=== PATIENT | female | born 1970 | race American Indian/Alaskan Native ===

== ENCOUNTER → 2018-04-06 17:34 | Outpatient (CLI) | payer OTHER, SELFPAY ==
--- NOTE | 2018-04-06 17:42 | DI.RAD.S_ITS ---
PROCEDURE: XR SHOULDER LT MIN 2V INDICATIONS: INJURY L ARM DISTAL FOREARM L SHOULDER TECHNIQUE: 3 views of the shoulder were acquired. COMPARISON: [facility], , SHOULDER MINIMUM 2 VIEW LEFT, 10/18/2017, 12:10. FINDINGS: Bones: No fractures or dislocations. No suspicious bony lesions. Visualized ribs appear intact. Glenohumeral and acromioclavicular joint degeneration is unchanged Soft tissues: No suspicious soft tissue calcifications. IMPRESSION: No fracture Dictated by: Estrada Carrasco M.D. on 04/06/2018 at 19:35 Approved by: Estrada Carrasco M.D. on 04/06/2018 at 19:36
--- NOTE | 2018-04-06 17:42 | DI.RAD.S_ITS ---
PROCEDURE: XR WRIST LT MIN 3V INDICATIONS: STATUS POST FALL ONTO OUT STRETCHED HAND. WRIST PAIN TECHNIQUE: 4 views of the wrist were acquired. COMPARISON: None. FINDINGS: Bones: No fractures or dislocations. No suspicious bony lesions. Scaphoid view: No fracture Soft tissues: No suspicious soft tissue calcifications. IMPRESSION: No fracture Dictated by: Estrada Carrasco M.D. on 04/06/2018 at 19:36 Approved by: Estrada Carrasco M.D. on 04/06/2018 at 19:38
== END ==
PROVIDERS: Family Provider Physician Assistant; PCP Physician Assistant; Visit Provider Physician Assistant
DX: S59.912A Unspecified injury of left forearm, initial encounter (principal); S69.92XA Unspecified injury of left wrist, hand and finger(s), initial encounter
CPT/HCPCS: 73030; 73110

== ENCOUNTER → 2018-10-25 09:13 | Outpatient (CLI) | payer OTHER, SELFPAY ==
--- NOTE | 2018-10-25 | DI.RAD.S_ITS ---
PROCEDURE: XR CHEST 2V INDICATIONS: PERSISTANT COUGH/SOB TECHNIQUE: 2 views of the chest were acquired. COMPARISON: [facility], , CHEST 2 VIEW, 11/01/2012, 10:23. FINDINGS: Surgical changes and devices: None. Lungs and pleura: No pleural effusions or pneumothorax. Lungs are clear. Mediastinum: Mediastinal contours are normal. Heart size is normal. Bones and chest wall: No suspicious bony abnormalities. Soft tissues appear unremarkable. IMPRESSION: Negative chest films. Dictated by: Andriy Burrell M.D. on 10/25/2018 at 9:58 Approved by: Andriy Burrell M.D. on 10/25/2018 at 9:58
== END ==
PROVIDERS: Family Provider Physician Assistant; PCP Physician Assistant; Visit Provider Family Medicine
DX: R05 Cough (principal); R06.02 Shortness of breath
CPT/HCPCS: 71046

== ENCOUNTER → 2018-11-01 08:34 | Outpatient (CLI) | payer OTHER, SELFPAY ==
--- NOTE | 2018-11-09 15:18 | PM.PFT.1 ---
Pulmonary Function Test Referral & Results Date Patient Seen: 11/01/18 Requesting provider: Antionette Major Indication: Shortness of breath, cough Results: The spirometry demonstrates an FVC of 4.04 L which is 114% of predicted. The FEV1 was measured at 3.21 L which is 115% of predicted. The FEV1/FVC ratio was 79 which is 99% of predicted. Following the administration of bronchodilator there was no appreciable change to above normal numbers. Lung volumes show an SVC of 3.90 L which is 120% of predicted. The diffusing capacity was measured at 25.98 which is 107% of predicted. The maximum voluntary ventilation was normal Interpretation: This study demonstrates normal pulmonary function
== END ==
PROVIDERS: PCP Physician Assistant; Visit Provider Family Medicine
DX: R06.02 Shortness of breath (principal); R05 Cough
CPT/HCPCS: 94060; 94726; 94729

== ENCOUNTER → 2020-11-18 16:43 | Outpatient (CLI) | payer OTHER, SELFPAY ==
--- NOTE | 2020-11-18 16:47 | DI.RAD.S_ITS ---
PROCEDURE: XR CHEST 2V INDICATIONS: Cough TECHNIQUE: 2 views of the chest were acquired. COMPARISON: [facility], , XR CHEST 2V, 10/25/2018, 9:28. [facility], , CHEST 2 VIEW, 11/01/2012, 10:23. FINDINGS: Surgical changes and devices: None. Lungs and pleura: Lungs are clear. No pleural effusions or pneumothorax. Mediastinum: Mediastinal contours are normal. Heart size is normal. Bones and chest wall: No suspicious bony abnormalities. Soft tissues appear unremarkable. IMPRESSION: Normal for age, source of current cough symptoms is not seen. Dictated by: Alex Powell M.D. on 11/18/2020 at 17:35 Approved by: Alex Powell M.D. on 11/18/2020 at 17:35
== END ==
PROVIDERS: PCP Physician Assistant; Referring Provider Family Medicine; Visit Provider Family Medicine
DX: J40 Bronchitis, not specified as acute or chronic (principal)
CPT/HCPCS: 71046

== ENCOUNTER → 2020-12-29 08:12 | Outpatient (CLI) | payer OTHER, SELFPAY ==
--- NOTE | 2020-12-29 08:23 | DI.CT.S_ITS ---
PROCEDURE: CT SINUS SCREEN WO CON INDICATIONS: Chronic sinusitis, unspecified TECHNIQUE: Noncontrast 3.0 mm axial images acquired from the frontal sinuses to the mid-sella, with coronal and sagittal reformats. For radiation dose reduction, the following was used: automated exposure control, adjustment of mA and/or kV according to patient size. COMPARISON: None. FINDINGS: Image quality: Excellent. Maxillary Sinuses: No bony remodeling or destruction. Sinuses are clear. Ethmoid Air Cells: No bony remodeling or destruction. Sinuses are clear. Sphenoid Sinuses: No bony remodeling or destruction. Sinuses are clear. Frontal Sinuses: No bony remodeling or destruction. Sinuses are clear. Ostiomeatal Complexes: Ostiomeatal complexes are patent, yet they are constitutionally narrowed, with bilateral Kp cells. Miscellaneous: Visualized intra-orbital contents are normal. No keenan bullosa or paradoxical turbinate curvature. There is minimal rightward nasal septal deviation. IMPRESSION: No active paranasal sinus disease is seen. Constitutionally narrowed ostiomeatal complexes, with bilateral Kp cells. Dictated by: Abad Wong M.D. on 12/29/2020 at 8:23 Approved by: Abad Wong M.D. on 12/29/2020 at 8:24
== END ==
PROVIDERS: PCP Physician Assistant; Referring Provider Family Medicine; Visit Provider Family Medicine
DX: J32.9 Chronic sinusitis, unspecified (principal)
CPT/HCPCS: 70486

== ENCOUNTER → 2022-02-02 13:41 | Outpatient (CLI) | payer OTHER, SELFPAY ==
[2022-02-03 14:33] LABS: Interpretation Negative (Negative)
== END ==
PROVIDERS: PCP Physician Assistant; Referring Provider Physician Assistant; Visit Provider Physician Assistant
DX: R10.30 Lower abdominal pain, unspecified (principal)
CPT/HCPCS: 83013

== ENCOUNTER 2023-06-06 16:50 | Emergency (ER) | payer OTHER, SELFPAY ==
[2023-06-06 16:53] VITALS: BP 119/67; PULSE 86; RESP 18; TEMP 36.9; O2SAT 99; BMI 41.1
[2023-06-06 17:25] LABS: Add Manual Diff / Slide Review NO; Basophils Absolute Auto 0 /uL (0-100); Basophils Percent Auto 0.2 % (0-2); Eosinophils Absolute Auto 100 /uL (0-450); Eosinophils Percent Auto 0.8 % (2-4); Hematocrit 40.8 % (36-46); Hemoglobin 13.7 g/dL (12.0-16.0); Lymphocytes Absolute Auto 1700 /uL (1100-4500); Lymphocytes Percent Auto 11.6 % (25-40); Mean Corpuscular HGB Conc 33.6 % (30-36); Mean Corpuscular Hemoglobin 28.2 PG (26-34); Monocytes Absolute Auto 900 /uL (0-900); Monocytes Percent Auto 6.1 % (3-14); Neutrophils Absolute Auto 11800 /uL (1500-7000); Neutrophils Percent Auto 81.3 % (50-75); Platelet Count 281 X10^3/uL (150-400); Red Blood Cell Count 4.86 X10^6/uL (4.0-5.2); Red Cell Distribution Width 14.6 % (11.6-14.8); White Blood Cell Count 14.5 X10^3/uL (4.5-11.0)
[2023-06-06 17:36] LABS: Alanine Aminotransferase 31 IU/L (<35); Albumin 4.1 g/dL (3.5-5.0); Albumin Globulin Ratio 1.4 (1.0-2.8); Alkaline Phosphatase 78 U/L (38-126); Aspartate Aminotransferase 27 IU/L (14-36); Bilirubin Total 0.3 mg/dL (0.2-1.3); Blood Urea Nitrogen 8 mg/dL (7-17); Calcium 8.7 mg/dL (8.4-10.2); Carbon Dioxide 25 mmol/L (22-32); Chloride 106 mmol/L (98-107); Estimated Glomerular Filt Rate > 60 mL/min (>60); Glucose 108 mg/dL (70-100); HEMOLYSIS < 15 (0-50); Lipase 354 U/L (23-300); Potassium 3.7 mmol/L (3.4-5.1); Sodium 138 mmol/L (137-145); Total Protein 7.1 g/dL (6.3-8.2)
[2023-06-06 19:43] LABS: Bacteria Urine Few (2-10); RBC Urine 5-10/HPF (0-5/HPF); Squamous Epithelial Cell Urine 0-1 /HPF (0-5/HPF); WBC Urine 0-1/HPF (0-5/HPF)
[2023-06-06 19:44] LABS: Culture Indicated Urine Specimen Cultured
[2023-06-06 20:26] VITALS: BP 117/63; PULSE 79; RESP 18; TEMP 36.2; O2SAT 94
[2023-06-06] MEDS: ONDANSETRON 4 MG/2 ML INJ IV (22:25)
[2023-06-06] MEDS: SODIUM CHLORIDE 0.9% 1,000 ML 1000 ML IV (22:25)
[2023-06-06 22:30] VITALS: BP 116/63; PULSE 78; RESP 18; O2SAT 93
[2023-06-06 23:00] VITALS: BP 116/64; PULSE 79; RESP 16; O2SAT 98
[2023-06-06 23:06] LABS: Adenovirus F 40/41 Not Detected (Not Detect); Astrovirus Not Detected (Not Detect); Campylobacter Not Detected (Not Detect); Cryptosporidium Not Detected (Not Detect); Cyclospora cayetanensis Not Detected (Not Detect); Entamoeba histolytica Not Detected (Not Detect); Enteroaggregative E.coli Not Detected (Not Detect); Enteropathogenic E.coli Not Detected (Not Detect); Enterotoxigenic E.coli It/st Not Detected (Not Detect); Giardia lamblia Not Detected (Not Detect); Norovirus GI/GII Not Detected (Not Detect); Plesiomonsa shigelloides Not Detected (Not Detect); Rotavirus A Not Detected (Not Detect); Salmonella Not Detected (Not Detect); Sapovirus Not Detected (Not Detect); Shiga-like toxin-prod E.coli Not Detected (Not Detect); Shigella/Enteroinvasive E.coli Not Detected (Not Detect); Vibrio Not Detected (Not Detect); Vibrio cholerae Not Detected (Not Detect); Yersinia enterocolitica Not Detected (Not Detect)
[2023-06-06 23:07] LABS: Clostridium difficile toxin AB Detected (Not Detect)
[2023-06-06 23:30] VITALS: BP 112/64; PULSE 80; RESP 20; O2SAT 97
--- NOTE | 2023-06-07 00:31 | ED.NAVMDI ---
HPI - Nausea/Vomiting/Diarrhea General Chief complaint: Nausea/Vomiting/Diarrhea Stated complaint: stomach cramps,vomiting, diarrhea Time Seen by Provider: 06/07/23 00:31 Source: patient Mode of arrival: Ambulatory History of Present Illness HPI Narrative: Patient 53-year-old female without significant past medical history presenting today with abdominal pain cramping and diarrhea. She reports that she just finished a course of antibiotics Augmentin for sinusitis she finished it about 5 days ago. She started having significant diarrhea today we swelling 10-50 times nonbloody. Some cramping earlier. No nausea or vomiting. She is still able to eat and drink. She was little bit dizzy he is not passed out denies any chest pain or palpitations. Related Data Home Medications Medication Instructions Recorded Confirmed albuterol sulfate 90 mcg/actuation 2 puff INH ##8.5 08/04/12 08/19/21 aerosol inhaler (Proventil HFA) cetirizine 5 mg tablet 5 mg PO DAILY PRN 02/23/21 08/19/21 citalopram 10 mg tablet 10 mg PO DAILY 02/23/21 08/19/21 fluticasone propionate 50 1 spray intranasal DAILY 02/23/21 08/19/21 mcg/actuation nasal spray,suspension (Flonase Allergy Relief) montelukast 10 mg tablet 10 mg PO DAILY 02/23/21 08/19/21 Previous Rx's Medication Instructions Recorded hydrocodone 5 mg-acetaminophen 325 1 tab PO Q6H PRN pain #10 tabs 06/07/23 mg tablet vancomycin 125 mg capsule 125 mg PO QID #40 caps 06/07/23 Allergies Allergy/AdvReac Type Severity Reaction Status Date / Time amoxicillin [From AUGMENTIN] Allergy Unknown Verified 08/19/21 16:02 clavulanic acid Allergy Unknown Verified 08/19/21 16:02 [From AUGMENTIN] hydromorphone [HYDROMORPHONE] Allergy Unknown Verified 08/19/21 16:02 Review of Systems Review of Systems ROS Unobtainable: All systems reviewed & are unremarkable except as noted in HPI and below Patient History Medical History Anxiety Asthma Depression Hyperlipemia Family History Family/Other Stroke Heart attack TRUDY (obstructive sleep apnea) Social History Smoking Status: Never smoker Smoking Status: Never smoker Substance Use Type: does not use Exam Initial Vital Signs Initial Vital Signs: Vital Signs Temperature 98.5 F 06/06/23 16:53 Pulse Rate 86 06/06/23 16:53 Respiratory Rate 18 06/06/23 16:53 Blood Pressure 119/67 06/06/23 16:53 Pulse Oximetry 99 06/06/23 16:53 Oxygen Delivery Method Room Air 06/06/23 16:53 GENERAL: Alert pleasant well-appearing 53-year-old female and in no acute distress. HEENT: Head atraumatic,EOMI, pupils reactive, face symmetric, moist mucous membranes CARDIOVASCULAR: Regular rate and rhythm without murmurs, rubs or gallops. RESPIRATORY: Breath sounds equal bilaterally, no wheezes rales or rhonchi. ABDOMEN: Soft, nontender. Normoactive bowel sounds all 4 quadrants. No guarding or rebound. EXTREMITIES: Normal range of motion, no clubbing or edema. Neurovascularly intact NEUROLOGICAL: Alert and oriented x4. SKIN: Warm, dry, no laceration, no petechiae, no rashes or lesions. Course Orders Ordered: ED Orders 06/06/23 21:20 GI Panel (Film Array) Stat Discontinued Medications Hydrocodone Bitart/Acetaminophen (Hydrocodone/Acet 5/325 Prepack) [facility] Stop: 06/07/23 00:46 Last Admin: 06/07/23 01:08 Dose: 1 bottle Documented By: BHAVESH Sodium Chloride (Normal Saline 0.9%) 1,000 mls @ 1,000 mls/hr IV BOLUS ONE Stop: 06/06/23 23:17 Last Infusion: 06/06/23 23:25 Dose: 0 mls/hr Documented By: Admin: 06/06/23 22:25 Dose: 1,000 mls/hr Documented By: BHAVESH Ketorolac Tromethamine (Ketorolac 30 Mg/Ml Vial) 15 mg IV NOW ONE Stop: 06/07/23 00:46 Last Admin: 06/07/23 01:07 Dose: 15 mg Documented By: BHAVESH Ondansetron HCl (Ondansetron 4 Mg Odt) 4 mg PO NOW PRN PRN Reason: Nausea And Vomiting Ondansetron HCl (Ondansetron 4 Mg/2 Ml Inj) 4 mg IV NOW PRN PRN Reason: Nausea And Vomiting Last Admin: 06/06/23 22:25 Dose: 4 mg Documented By: BHAVESH Vancomycin HCl (Vancomycin 125 Mg Capsule) 125 mg PO NOW ONE Stop: 06/07/23 00:46 Last Admin: 06/07/23 01:08 Dose: 125 mg Documented By: BHAVESH Vital Signs Vital signs: Vital Signs - 8 hr 06/06/23 22:30 06/06/23 22:30 06/06/23 23:00 Temperature Pulse Rate 78 Respiratory Rate 18 Blood Pressure 116/63 116/64 Pulse Oximetry 93 Oxygen Delivery Method 06/06/23 23:00 06/06/23 23:30 06/06/23 23:30 Temperature Pulse Rate 79 80 Respiratory Rate 16 20 Blood Pressure 112/64 Pulse Oximetry 98 97 Oxygen Delivery Method 06/07/23 01:18 Temperature 98 F Pulse Rate 80 Respiratory Rate 16 Blood Pressure 113/53 L Pulse Oximetry 98 Oxygen Delivery Method Room Air MDM - Nausea/Vomiting/Diarrhea Lab Data 06/06/23 17:11 06/06/23 17:11 Labs: Lab Results 06/06/23 06/06/23 06/06/23 Range/Units 17:11 17:11 18:24 WBC 14.5 H (4.5-11.0) X10^3/uL RBC 4.86 (4.0-5.2) X10^6/uL Hgb 13.7 (12.0-16.0) g/dL Hct 40.8 (36-46) % MCV 84.0 (80-100) fL MCH 28.2 (26-34) PG MCHC 33.6 (30-36) % RDW 14.6 (11.6-14.8) % Plt Count 281 (150-400) X10^3/uL Neut % (Auto) 81.3 H (50-75) % Lymph % (Auto) 11.6 L (25-40) % [place] % (Auto) 6.1 (3-14) % Eos % (Auto) 0.8 L (2-4) % Baso % (Auto) 0.2 (0-2) % Neut # (Auto) 00017 H (2498-5364) /uL Lymph # (Auto) 1700 (0337-2046) /uL [place] # (Auto) 900 (0-900) /uL Eos # (Auto) 100 (0-450) /uL Baso # (Auto) 0 (0-100) /uL Sodium 138 (137-145) mmol/L Potassium 3.7 (3.4-5.1) mmol/L Chloride 106 (98-107) mmol/L Carbon Dioxide 25 (22-32) mmol/L BUN 8 (7-17) mg/dL Creatinine 0.80 (0.52-1.04) mg/dL Estimated GFR > 60 (>60) mL/min BUN/Creatinine Ratio 10.0 (6-22) Glucose 108 H (70-100) mg/dL Calcium 8.7 (8.4-10.2) mg/dL Total Bilirubin 0.3 (0.2-1.3) mg/dL AST 27 (14-36) IU/L ALT 31 (<35) IU/L Alkaline Phosphatase 78 (38-126) U/L Total Protein 7.1 (6.3-8.2) g/dL Albumin 4.1 (3.5-5.0) g/dL Globulin 3.0 (1.7-4.1) g/dL Albumin/Globulin Ratio 1.4 (1.0-2.8) Lipase 354 H (23-300) U/L Urine RBC 5-10/hpf H (0-5/HPF) Urine WBC 0-1/hpf (0-5/HPF) Ur Squamous Epith Cells 0-1 /hpf (0-5/HPF) Urine Bacteria Few (2-10) H (None) Ur Culture Indicated? Specimen cultured Stl C. cayetanensis PCR (Not Detect) Stool Rotavirus (PCR) (Not Detect) Stool Adenovirus (PCR) (Not Detect) Stool Astrovirus (PCR) (Not Detect) Stool Cryptosporidium PCR (Not Detect) Stl E.coli Shiga Tox PCR (Not Detect) St Sh/Enteroin Ecoli PCR (Not Detect) Stool E coli O157 PCR (Not Detect) Stl Enterotoxigenic E PCR (Not Detect) Stool EPEC (PCR) (Not Detect) Stl E. histolytica PCR (Not Detect) Stool Giardia Lamblia PCR (Not Detect) Stool Sapovirus (PCR) (Not Detect) Stl P. shigelloides PCR (Not Detect) St Y.enterocolitica PCR (Not Detect) Stool Vibrio (PCR) (Not Detect) Stl Vibrio cholerae PCR (Not Detect) Stl Enteroaggr Ecoli PCR (Not Detect) Stl Norovirus GI/GII PCR (Not Detect) Campylobacter (PCR) (Not Detect) C. difficile Tox (PCR) (Not Detect) Salmonella (PCR) (Not Detect) 06/06/23 Range/Units 21:20 WBC (4.5-11.0) X10^3/uL RBC (4.0-5.2) X10^6/uL Hgb (12.0-16.0) g/dL Hct (36-46) % MCV (80-100) fL MCH (26-34) PG MCHC (30-36) % RDW (11.6-14.8) % Plt Count (150-400) X10^3/uL Neut % (Auto) (50-75) % Lymph % (Auto) (25-40) % [place] % (Auto) (3-14) % Eos % (Auto) (2-4) % Baso % (Auto) (0-2) % Neut # (Auto) (4962-0126) /uL Lymph # (Auto) (4135-8597) /uL [place] # (Auto) (0-900) /uL Eos # (Auto) (0-450) /uL Baso # (Auto) (0-100) /uL Sodium (137-145) mmol/L Potassium (3.4-5.1) mmol/L Chloride (98-107) mmol/L Carbon Dioxide (22-32) mmol/L BUN (7-17) mg/dL Creatinine (0.52-1.04) mg/dL Estimated GFR (>60) mL/min BUN/Creatinine Ratio (6-22) Glucose (70-100) mg/dL Calcium (8.4-10.2) mg/dL Total Bilirubin (0.2-1.3) mg/dL AST (14-36) IU/L ALT (<35) IU/L Alkaline Phosphatase (38-126) U/L Total Protein (6.3-8.2) g/dL Albumin (3.5-5.0) g/dL Globulin (1.7-4.1) g/dL Albumin/Globulin Ratio (1.0-2.8) Lipase (23-300) U/L Urine RBC (0-5/HPF) Urine WBC (0-5/HPF) Ur Squamous Epith Cells (0-5/HPF) Urine Bacteria (None) Ur Culture Indicated? Stl C. cayetanensis PCR Not detected (Not Detect) Stool Rotavirus (PCR) Not detected (Not Detect) Stool Adenovirus (PCR) Not detected (Not Detect) Stool Astrovirus (PCR) Not detected (Not Detect) Stool Cryptosporidium PCR Not detected (Not Detect) Stl E.coli Shiga Tox PCR Not detected (Not Detect) St Sh/Enteroin Ecoli PCR Not detected (Not Detect) Stool E coli O157 PCR Not detected (Not Detect) Stl Enterotoxigenic E PCR Not detected (Not Detect) Stool EPEC (PCR) Not detected (Not Detect) Stl E. histolytica PCR Not detected (Not Detect) Stool Giardia Lamblia PCR Not detected (Not Detect) Stool Sapovirus (PCR) Not detected (Not Detect) Stl P. shigelloides PCR Not detected (Not Detect) St Y.enterocolitica PCR Not detected (Not Detect) Stool Vibrio (PCR) Not detected (Not Detect) Stl Vibrio cholerae PCR Not detected (Not Detect) Stl Enteroaggr Ecoli PCR Not detected (Not Detect) Stl Norovirus GI/GII PCR Not detected (Not Detect) Campylobacter (PCR) Not detected (Not Detect) C. difficile Tox (PCR) Detected H (Not Detect) Salmonella (PCR) Not detected (Not Detect) Urine Dip Bedside Urine Glucose Negative Bedside Urine Bilirubin - Negative Bedside Urine Ketone - Negative Urine Specific [place] 1.015 Bedside Urine Occult Blood ++ Bedside Urine pH 6.0 Bedside Urine Protein - Negative Bedside Urine Urobilinogen - Negative Bedside Urine Nitrite - Negative Bedside Urine Leukocytes +/- 15 Esterase MDM Narrative Medical decision making narrative: Patient 53-year-old female recent history of antibiotic use presents today with abdominal pain cramping and diarrhea. GI panel is positive for C diff. She was leukocytosis of 14 no significant evidence of dehydration or electrolyte abnormalities. At this time reasonable to start her on p.o. vancomycin and pain control. No need for admission or imaging at this time. Discussed with her reasons to return. Discharge Plan Departure Patient Disposition: Home Clinical Impression: Clostridium difficile diarrhea Instructions: DI for Antibiotic -- associated Colitis -- C difficile, Clostridioides (Clostridium) difficile Infection Activity Restrictions/Additional Instructions: *You have been diagnosed with C diff *What to do: At this time increase fluids as tolerated recommend Pedialyte or Pedialyte like product, broth Gatorade juice. If you tolerate food then advance diet as tolerate. Please try and stay hydrated. *Continue to take medications as directed--> [place] drug Vancomycin 125 mg 4 times a day for 10 days [place] 1 tablet every 6 hours if needed for severe pain *Follow up with your primary care provider in 2-3 days or call [phone] *Return to ER if you should have increasing diarrhea, not tolerating fluids, bloody stool, increasing abdominal pain or any new, worsening or concerning symptoms CONTROLLED SUBSTANCE DISCHARGE (Narcotoic/benzodiazepine/Flexeril/Phenergan) 1. You have been prescribed narcotic medications, it does have acetaminophen/Tylenol/paracetamol in it, DO NOT TAKE MORE THAN 4,00mg in 24 hours of Tylenol. TRAMADOL DOES NOT CONTAIN TYLENOL 2. Please understand that we cannot provide further refills of narcotics, benzodiazepines or controlled substances through the ED and her pain management will need to be through your provider. 3. While on these medications you cannot drive or operate heavy machinery. 4. You cannot sign legal documents or perform any duties such as this. 5. As long as you're taking opiate pain medications he should also be taking a stool softener such as Colace, Dulcolax, MiraLAX or prune juice, to help avoid constipation. Prescriptions: New vancomycin 125 mg capsule 125 mg PO QID Qty: 40 0RF hydrocodone-acetaminophen 5-325 mg tablet 1 tab PO Q6H PRN (Reason: pain) Qty: 10 0RF No Action albuterol sulfate [Proventil HFA] 90 MCG/PUFF HFA aerosol inhaler 2 puff INH Qty: 8.5 cetirizine 5 mg tablet 5 mg PO DAILY PRN montelukast 10 mg tablet 10 mg PO DAILY citalopram 10 mg tablet 10 mg PO DAILY fluticasone propionate [Flonase Allergy Relief] 50 mcg/actuation spray,suspension 1 spray intranasal DAILY Rx Instructions: administer into each nostril Referrals: Hayde Augustin PA-C [Primary Care Provider] - Stand Alone Forms: Patient Portal/API
[2023-06-07] MEDS: KETOROLAC 30 MG/ML VIAL 15 MG IV (01:07)
[2023-06-07] MEDS: VANCOMYCIN 125 MG CAPSULE PO (01:08)
[2023-06-07] MEDS: HYDROCODONE/ACET 5/325 PREPACK 1 BOTTLE MISC (01:08)
[2023-06-07 01:18] VITALS: BP 113/53; PULSE 80; RESP 16; TEMP 36.6; O2SAT 98
[2023-06-08 16:12] LABS: C difficie Toxins A and B, EIA Negative (Negative)
== END 2023-06-07 01:20 | disposition home or self-care (01) ==
PROVIDERS: Emergency Medicine; Emergency Provider Emergency Medicine; PCP Physician Assistant; Referring Provider Physician Assistant
DX: A04.72 Enterocolitis due to Clostridium difficile, not specified as recurrent (principal)
CPT/HCPCS: 36415; 80053; 81003; 81015; 83690; 85025; 87086; 87324; 87507; 93005; 93010; 96361; 96374; 96375; 99284; J1885; J2405

== ENCOUNTER 2023-06-30 11:53 | Emergency (ER) | payer OTHER, SELFPAY ==
[2023-06-30] VITALS (14 sets, daily range): BP systolic 106–127; BP diastolic 58–73; PULSE 66–75; RESP 12–20; TEMP 36.9; O2SAT 93–100; BMI 41.1
--- NOTE | 2023-06-30 16:06 | DI.CT.S_ITS ---
PROCEDURE: CT ABDOMEN PELVIS W CON INDICATIONS: Right upper abdomen pain TECHNIQUE: After the administration of oral and IV contrast, axial sections were acquired from the lung bases to the pubic symphysis. Coronal and sagittal reformats were performed. For radiation dose reduction, the following was used: automated exposure control, adjustment of mA and/or kV according to patient size. COMPARISON: None. FINDINGS: Image quality: Excellent. Lung bases: Unremarkable. Heart: No significant findings. ABDOMEN: Liver: Prominent in size. Mild hepatic steatosis. There are several hepatic hypodensities, most likely hepatic cysts although some lesions are too small to further characterize, therefore, indeterminate. Gallbladder: Unremarkable. Biliary ducts: Unremarkable. Pancreas: Unremarkable. Spleen: Unremarkable. Adrenal Glands: Unremarkable. Kidneys and Ureters: Unremarkable. Stomach and Bowel: Stomach, small bowel loops, and colon are unremarkable. Peritoneum: No abnormal intraperitoneal fluid. No free air. Ventral Wall: No hernia. Abdominal Nodes: No retroperitoneal or mesenteric adenopathy by size criteria. Vessels: Aorta and inferior vena cava are normal in size. PELVIS: Pelvic Organs: There is an IUD in uterus. Uterus is normal in size. Cervix is prominent. Bladder: Unremarkable. Pelvic Nodes: No enlarged lymph nodes. Miscellaneous: No inguinal hernias are seen. Bones: Unremarkable. IMPRESSION: 1. A cause for right upper quadrant pain is not identified. 2. Cervix is prominent. Consider gynecological ultrasound for follow-up evaluation. 3. Mild hepatic steatosis. 4. Hepatic cysts. Dictated by: Pierre Suarez M.D. on 06/30/2023 at 16:44 Approved by: Pierre Suarez M.D. on 06/30/2023 at 16:49
--- NOTE | 2023-06-30 16:11 | ED.ABDPAIN ---
HPI - Abdominal Pain General Chief Complaint: Abdominal Pain Stated Complaint: pain upper RT side DR sent CT scan Time Seen by Provider: 06/30/23 15:39 History of Present Illness HPI narrative: 53-year-old female presents for right upper quadrant abdominal pain. Patient is currently being treated with oral vancomycin for C diff colitis. She states that her C diff is gradually improving, however she began to notice right upper quadrant pain. When she called her primary care doctor's office they referred her to the ER for evaluation. Pain is sharp, nonradiating. Patient can not identify what makes it better or worse. She is been following a light diet due to her C diff. Related Data Home Medications Medication Instructions Recorded Confirmed cetirizine 5 mg tablet 10 mg PO DAILY 02/23/21 06/30/23 citalopram 10 mg tablet 20 mg PO DAILY 02/23/21 06/30/23 fluticasone propionate 50 1 spray intranasal DAILY PRN Runny 02/23/21 06/30/23 mcg/actuation nasal Nose spray,suspension (Flonase Allergy Relief) montelukast 10 mg tablet 10 mg PO DAILY 02/23/21 06/30/23 Previous Rx's Medication Instructions Recorded vancomycin 125 mg capsule 125 mg PO QID #40 caps 06/07/23 dicyclomine 20 mg tablet 20 mg PO TID #30 tabs 06/30/23 Allergies Allergy/AdvReac Type Severity Reaction Status Date / Time amoxicillin [From AUGMENTIN] Allergy Unknown Verified 08/19/21 16:02 clavulanic acid Allergy Unknown Verified 08/19/21 16:02 [From AUGMENTIN] hydromorphone [HYDROMORPHONE] Allergy Unknown Verified 08/19/21 16:02 Review of Systems Review of Systems Narrative: CONSTITUTIONAL- Denies: fever, chills, fatigue HEENT- Denies: sore throat, nosebleed, vision changes RESPIRATORY- Denies: shortness of breath, cough, wheezing CARDIAC- Denies: chest pain, edema, orthopnea GI-reports: Abdominal pain Denies: nausea, vomiting, constipation, diarrhea - Denies: frequency, dysuria, hematuria, flank pain MSK- Denies: extremity pain, extremity swelling, joint pain, joint swelling SKIN- Denies: rash, itching, burn, swelling NEUROLOGICAL- Denies: headache, numbness, weakness, dizziness PSYCHIATRIC- Denies: anxiety, depression, suicidal ideation, homicidal ideation Patient History Medical History Anxiety Asthma Depression Hyperlipemia Family History Family/Other Stroke Heart attack TRUDY (obstructive sleep apnea) Social History Smoking Status: Never smoker Smoking Status: Never smoker Substance Use Type: does not use Exam Initial Vital Signs Initial Vital Signs: Vital Signs Temperature 98.4 F 06/30/23 12:08 Pulse Rate 70 06/30/23 12:08 Respiratory Rate 16 06/30/23 12:08 Blood Pressure 107/70 06/30/23 12:08 Pulse Oximetry 97 06/30/23 12:08 Oxygen Delivery Method Room Air 06/30/23 12:08 Const: Awake, alert, no acute distress, nontoxic appearing Eyes: PERRL, EOMI, conjunctiva normal ENT: Atraumatic, dentition normal, mucous membranes moist Cardiac: regular rate, regular rhythm RESP: unlabored, clear bilaterally, no wheezing GI: Atraumatic, soft, right upper quadrant abdominal tenderness to deep palpation without rebound or guarding MSK: Atraumatic, full range of motion, pulses equal Skin: Warm, Dry, intact, no rashes Neuro: AO x3, CN II-XII grossly intact, moves all extremities Psych: affect normal, mood normal, not suicidal, not homicidal Course Course Course Narrative: Well-appearing patient with right upper quadrant abdominal pain while undergoing treatment for C diff colitis. Abdomen is soft but she does have reproducible tenderness to palpation in the right upper quadrant. No underlying rashes or skin changes. Will order labs, imaging. Medications for pain ordered. Orders Ordered: Discontinued Medications Ketorolac Tromethamine (Ketorolac 30 Mg/Ml Vial) 15 mg IV NOW ONE Stop: 06/30/23 15:54 Last Admin: 06/30/23 16:36 Dose: 15 mg Documented By: MPO Reevaluation(s) Reevaluation #1: Pain improved with medications. Laboratory work is reviewed. There is mild elevation in liver enzymes from patient's visit 1 month prior, nonspecific. Hepatic steatosis seen, hepatic cyst seen, no acute pathology. Mention made of abnormally large cervix. Patient was informed of this finding. She states that she has not had Pap smear in recent memory. She was strongly encouraged to follow up with OBGYN for a pelvic exam and Pap smear. In the interim we will give Bentyl and Carafate for abdominal cramping and spasms. ED return precautions discussed at bedside. Patient expressed understanding of the plan and is in agreement at this time. All questions answered at the time of discharge. Vital Signs Vital signs: Vital Signs - 8 hr 06/30/23 12:08 06/30/23 15:41 06/30/23 16:48 Temperature 98.4 F Pulse Rate 70 75 Respiratory Rate 16 20 Blood Pressure 107/70 106/65 127/73 Pulse Oximetry 97 95 Oxygen Delivery Method Room Air Room Air 06/30/23 17:20 06/30/23 17:21 06/30/23 17:21 Temperature Pulse Rate 68 70 Respiratory Rate Blood Pressure 113/58 L Pulse Oximetry 94 96 Oxygen Delivery Method 06/30/23 17:30 06/30/23 17:45 06/30/23 18:00 Temperature Pulse Rate 66 69 71 Respiratory Rate Blood Pressure Pulse Oximetry 100 93 95 Oxygen Delivery Method MDM - Abdominal Pain Lab Data 06/30/23 16:13 06/30/23 16:13 Labs: Lab Results 06/30/23 06/30/23 06/30/23 Range/Units 16:13 16:13 16:13 WBC 6.9 (4.5-11.0) X10^3/uL RBC 5.10 (4.0-5.2) X10^6/uL Hgb 14.4 (12.0-16.0) g/dL Hct 43.4 (36-46) % MCV 85.2 (80-100) fL MCH 28.3 (26-34) PG MCHC 33.2 (30-36) % RDW 14.6 (11.6-14.8) % Plt Count 316 (150-400) X10^3/uL Neut % (Auto) 55.8 (50-75) % Lymph % (Auto) 30.9 (25-40) % Letcher % (Auto) 11.1 (3-14) % Eos % (Auto) 1.8 L (2-4) % Baso % (Auto) 0.4 (0-2) % Neut # (Auto) 3800 (7452-6816) /uL Lymph # (Auto) 2100 (0247-1353) /uL Letcher # (Auto) 800 (0-900) /uL Eos # (Auto) 100 (0-450) /uL Baso # (Auto) 0 (0-100) /uL Sodium 139 (137-145) mmol/L Potassium 4.3 (3.4-5.1) mmol/L Chloride 102 (98-107) mmol/L Carbon Dioxide 32 (22-32) mmol/L BUN 10 (7-17) mg/dL Creatinine 0.80 (0.52-1.04) mg/dL Estimated GFR > 60 (>60) mL/min BUN/Creatinine Ratio 12.5 (6-22) Glucose 109 H (70-100) mg/dL Calcium 9.3 (8.4-10.2) mg/dL Total Bilirubin 0.3 (0.2-1.3) mg/dL AST 38 H (14-36) IU/L ALT 56 H (<35) IU/L Alkaline Phosphatase 72 (38-126) U/L Ammonia < 9 L (9-30) umol/L Total Protein 7.7 (6.3-8.2) g/dL Albumin 4.3 (3.5-5.0) g/dL Globulin 3.4 (1.7-4.1) g/dL Albumin/Globulin Ratio 1.3 (1.0-2.8) Lipase 137 (23-300) U/L Urine RBC (0-5/HPF) Urine WBC (0-5/HPF) Ur Squamous Epith Cells (0-5/HPF) Urine Bacteria (None) Urine Mucus (Negative) Ur Culture Indicated? 06/30/23 Range/Units 17:30 WBC (4.5-11.0) X10^3/uL RBC (4.0-5.2) X10^6/uL Hgb (12.0-16.0) g/dL Hct (36-46) % MCV (80-100) fL MCH (26-34) PG MCHC (30-36) % RDW (11.6-14.8) % Plt Count (150-400) X10^3/uL Neut % (Auto) (50-75) % Lymph % (Auto) (25-40) % Letcher % (Auto) (3-14) % Eos % (Auto) (2-4) % Baso % (Auto) (0-2) % Neut # (Auto) (5812-3252) /uL Lymph # (Auto) (4667-6924) /uL Letcher # (Auto) (0-900) /uL Eos # (Auto) (0-450) /uL Baso # (Auto) (0-100) /uL Sodium (137-145) mmol/L Potassium (3.4-5.1) mmol/L Chloride (98-107) mmol/L Carbon Dioxide (22-32) mmol/L BUN (7-17) mg/dL Creatinine (0.52-1.04) mg/dL Estimated GFR (>60) mL/min BUN/Creatinine Ratio (6-22) Glucose (70-100) mg/dL Calcium (8.4-10.2) mg/dL Total Bilirubin (0.2-1.3) mg/dL AST (14-36) IU/L ALT (<35) IU/L Alkaline Phosphatase (38-126) U/L Ammonia (9-30) umol/L Total Protein (6.3-8.2) g/dL Albumin (3.5-5.0) g/dL Globulin (1.7-4.1) g/dL Albumin/Globulin Ratio (1.0-2.8) Lipase (23-300) U/L Urine RBC 0-1/hpf (0-5/HPF) Urine WBC 1-5/hpf (0-5/HPF) Ur Squamous Epith Cells 10-30 /hpf H D (0-5/HPF) Urine Bacteria Moderate (10-30) H (None) Urine Mucus 1+ H (Negative) Ur Culture Indicated? Cult not indicated Point of care testing: Urine Dip Bedside Urine Glucose Negative Bedside Urine Bilirubin - Negative Bedside Urine Ketone - Negative Urine Specific Points 1.030 Bedside Urine Occult Blood + Bedside Urine pH 5.5 Bedside Urine Protein - Negative Bedside Urine Urobilinogen - Negative Bedside Urine Nitrite - Negative Bedside Urine Leukocytes - Negative Esterase Discharge Plan Departure Patient Disposition: Home Clinical Impression: Abdominal pain Instructions: DI for Abdominal Pain-Adult Prescriptions: New dicyclomine 20 mg tablet 20 mg PO TID Qty: 30 0RF No Action vancomycin 125 mg capsule 125 mg PO QID Qty: 40 0RF cetirizine 5 mg tablet 10 mg PO DAILY montelukast 10 mg tablet 10 mg PO DAILY citalopram 10 mg tablet 20 mg PO DAILY fluticasone propionate [Flonase Allergy Relief] 50 mcg/actuation spray,suspension 1 spray intranasal DAILY PRN (Reason: Runny Nose) Rx Instructions: administer into each nostril Referrals: Hayde Augustin PA-C [Primary Care Provider] - Stand Alone Forms: Patient Portal/API
[2023-06-30 16:25] LABS: Add Manual Diff / Slide Review NO; Basophils Absolute Auto 0 /uL (0-100); Basophils Percent Auto 0.4 % (0-2); Eosinophils Absolute Auto 100 /uL (0-450); Eosinophils Percent Auto 1.8 % (2-4); Hematocrit 43.4 % (36-46); Hemoglobin 14.4 g/dL (12.0-16.0); Lymphocytes Absolute Auto 2100 /uL (1100-4500); Lymphocytes Percent Auto 30.9 % (25-40); Mean Corpuscular HGB Conc 33.2 % (30-36); Mean Corpuscular Hemoglobin 28.3 PG (26-34); Mean Corpuscular Volume 85.2 fL (80-100); Monocytes Absolute Auto 800 /uL (0-900); Monocytes Percent Auto 11.1 % (3-14); Neutrophils Absolute Auto 3800 /uL (1500-7000); Neutrophils Percent Auto 55.8 % (50-75); Platelet Count 316 X10^3/uL (150-400); Red Cell Distribution Width 14.6 % (11.6-14.8); White Blood Cell Count 6.9 X10^3/uL (4.5-11.0)
[2023-06-30] MEDS: KETOROLAC 30 MG/ML VIAL 15 MG IV (16:36)
[2023-06-30 16:49] LABS: Ammonia (NH3) < 9 umol/L (9-30)
[2023-06-30 16:50] LABS: Alanine Aminotransferase 56 IU/L (<35); Albumin 4.3 g/dL (3.5-5.0); Albumin Globulin Ratio 1.3 (1.0-2.8); Alkaline Phosphatase 72 U/L (38-126); Aspartate Aminotransferase 38 IU/L (14-36); BUN Creatinine Ratio 12.5 (6-22); Bilirubin Total 0.3 mg/dL (0.2-1.3); Blood Urea Nitrogen 10 mg/dL (7-17); Calcium 9.3 mg/dL (8.4-10.2); Carbon Dioxide 32 mmol/L (22-32); Chloride 102 mmol/L (98-107); Estimated Glomerular Filt Rate > 60 mL/min (>60); Globulin 3.4 g/dL (1.7-4.1); Glucose 109 mg/dL (70-100); HEMOLYSIS < 15 (0-50); Lipase 137 U/L (23-300); Potassium 4.3 mmol/L (3.4-5.1); Sodium 139 mmol/L (137-145); Total Protein 7.7 g/dL (6.3-8.2)
--- NOTE | 2023-06-30 16:55 | DI.US.S_ITS ---
PROCEDURE: US ABDOMEN LIMITED INDICATIONS: RUQ PAIN TECHNIQUE: Real-time scanning was performed of the abdominal and retroperitoneal organs, with image documentation. COMPARISON: Same-day CT abdomen pelvis 06/30/2023. FINDINGS: Liver: Liver is mildly enlarged with increased echogenicity. Redemonstration of hepatic cyst measuring 4.2 x 2.7 x 4.6 cm as seen on same day CT abdomen pelvis 06/30/2023. Gallbladder: Gallbladder is nondistended. Minimal gallbladder sludge without gallbladder wall thickening, pericholecystic fluid, and negative sonographic Hines sign. Biliary ducts: Intrahepatic bile ducts are non-dilated. Extrahepatic bile duct caliber measures 4.7 mm. Normal is 6-7 mm or less in diameter, or 10 mm or less post-cholecystectomy. IMPRESSION: No sonographic evidence of acute cholecystitis. Increased hepatic echogenicity possibly related to hepatic steatosis but other sources of hepatocellular disease cannot be excluded. Recommend clinical correlation Approved by: Adelina Weaver M.D. on 06/30/2023 at 18:14
[2023-06-30 17:53] LABS: Bacteria Urine Moderate (10-30); Culture Indicated Urine Cult Not Indicated; Mucus Urine 1+ (Negative); RBC Urine 0-1/HPF (0-5/HPF); Squamous Epithelial Cell Urine 10-30 /HPF (0-5/HPF); WBC Urine 1-5/HPF (0-5/HPF)
== END 2023-06-30 19:36 | disposition home or self-care (01) ==
PROVIDERS: Emergency Provider Emergency Medicine; PCP Physician Assistant
DX: R10.11 Right upper quadrant pain (principal)
CPT/HCPCS: 36415; 74177; 76705; 80053; 81003; 81015; 82140; 83690; 85025; 96374; 99284; J1885; Q9967

== ENCOUNTER → 2023-10-05 14:47 | Outpatient (CLI) | payer OTHER, SELFPAY ==
--- NOTE | 2023-10-05 14:51 | DI.RAD.S_ITS ---
PROCEDURE: XR CHEST 2V INDICATIONS: subacute cough TECHNIQUE: 2 views of the chest were acquired. COMPARISON: [facility], CR, XR CHEST 2V, 11/18/2020, 17:07. FINDINGS: Surgical changes and devices: None. Lungs and pleura: Lungs are clear. No pleural effusions or pneumothorax. Mediastinum: Mediastinal contours are normal. Heart size is normal. Bones and chest wall: No suspicious bony abnormalities. Soft tissues appear unremarkable. IMPRESSION: No acute cardiopulmonary abnormality is seen. Dictated by: Shawanda Barrios M.D. on 10/05/2023 at 17:28 Approved by: Shawanda Barrios M.D. on 10/05/2023 at 17:29
== END ==
PROVIDERS: PCP Physician Assistant; Referring Provider Nurse Practitioner Family; Visit Provider Nurse Practitioner Family
DX: R05.2 Subacute cough (principal)
CPT/HCPCS: 71046

== ENCOUNTER → 2025-01-16 08:28 | Outpatient (CLI) | payer OTHER, SELFPAY ==
--- NOTE | 2025-01-16 08:29 | DI.MG.S_ITS ---
MM screening mammo BI: 01/16/2025. BI-RADS: 1 CLINICAL: 54-year old female for bilateral screening mammogram. Tyrer-Cuzick lifetime risk of 14.8%. Current reported family history of breast cancer: mother. PRIOR EXAMS 08/02/2023. MAMMOGRAPHY TECHNIQUE: 2D and 3D (tomosynthesis) digital mammographic views obtained, with additional images as needed for full coverage. Current study was also evaluated with a Computer Aided Detection (CAD) system. DENSITY B. There are scattered areas of fibroglandular density. MAMMOGRAPHY FINDINGS Bilateral: No suspicious mass, asymmetry, microcalcification, or other abnormality seen. IMPRESSION: * No evidence of malignancy. RECOMMENDATIONS Bilateral * Annual screening mammography. OVERALL ASSESSMENT CATEGORY BI-RADS-1: Negative. The [employer] recommends annual screening mammography beginning at age 40 for women with average risk of breast cancer. ELECTRONICALLY SIGNED: Adelina Weaver M.D. on 01/17/2025 at 03:29:40 PM PT Interpreting Station ID: [id number]
== END ==
LOC: MAMMO 08:29
PROVIDERS: PCP Nurse Practitioner Family; Referring Provider Nurse Practitioner Family; Visit Provider Nurse Practitioner Family
DX: Z12.31 Encounter for screening mammogram for malignant neoplasm of breast (principal); Z80.3 Family history of malignant neoplasm of breast
CPT/HCPCS: 77063; 77067